=== PATIENT | female | born 1985 | race Caucasian/White ===

== ENCOUNTER 2019-07-05 07:15 | Day surgery (SDC) | payer MEDICARE ==
[~2019-07-05] VITALS: Ht 170.2 cm; Wt 82.6 kg
[~2019-07-05 07:15] MED LIST: ACET325T9 PO; ATOM80CA PO; HYDROmorphone 2 MG/ML VIAL IV PRN; IBUP-1027 PO; IV RINGERS,LACTATED 1000ML 1,000 ML IV SCH; MORPHINE SULFATE 2 MG/ML VIAL. IV PRN; OLAN10TA9 PO; ONDANSETRON PF 4 MG/2 ML VIAL. IV PRN; PROCHLORPERAZINE 10 MG/2 ML VIAL. IV PRN; [UNRECOGNIZED DRUG - CODE] PO; ceFAZolin SODIUM IV Push 1 GM VIAL. IVP ONE; ceFAZolin SODIUM IV Push 1 GM VIAL. IVP PRN; fentaNYL PF VIAL 100 MCG/2 ML VIAL IV PRN
[2019-07-05] MEDS ORDERED: FAMOTIDINE 20 MG/2 ML VIAL ONE (08:05)
[2019-07-05] MEDS ORDERED: ONDANSETRON PF 4 MG/2 ML VIAL. ONE (08:05)
[2019-07-05] MEDS ORDERED: PROPOFOL 20 ML IV ONE (08:05)
[2019-07-05] MEDS ORDERED: LIDOCAINE 2% PF 5 ML VIAL. ONE (08:05)
[2019-07-05] MEDS ORDERED: KETOROLAC 30 MG/ML VIAL. ONE (08:05)
[2019-07-05] MEDS ORDERED: KETAMINE HCL IN NACL, ISO-OSM 50 MG/5 ML SYRINGE ONE (08:06)
[2019-07-05] MEDS ORDERED: MIDAZOLAM HCL/PF 2 MG/2 ML VIAL. ONE (08:06)
[2019-07-05] MEDS ORDERED: DEXAMETHASONE SOD PHOS 4 MG/ML VIAL ONE ×2 (08:06)
[2019-07-05] MEDS ORDERED: SEVOFLURANE 16 TO 30 MINUTES. IH ONE (09:11)
--- NOTE | 2019-07-05 09:22 | PDOC ---
BRIEF OPERATIVE NOTE Date: Jul 05, 2019 Pre-Op Diagnosis Misplaced IUD Post-Op Diagnosis Same Procedure Performed [place] [facility] [place]. Delacruz Anesthesia Type: General Blood Loss none Specimens Obtained IUD Findings IUD partially protruding through sidewall of uterus, nml fallopian tube ostia Complications none Operative Note see dictation DAMARIS DELACRUZ Jr, MD Jul 05, 2019 09:21
--- NOTE | 2019-07-05 09:23 | DISCH ---
DISCHARGE INSTRUCTIONS Condition on Discharge Condition on Discharge: Stable Activity After Discharge Activity Instructions for Disc: Activity as tolerated Lifting Instructions after Dis: No heavy lifting Driving Instructions after Dis: Do not drive today Diet after Discharge Diet after Discharge: Regular Contacting the DRDavie after DC Call your doctor for: Concerns you may have Follow-Up Follow up with: Dr. Minaya in 1 wk DAMARIS MINAYA Jr, MD Jul 05, 2019 09:23
[2019-07-05] MEDS ORDERED: IBUP200T44 PO (09:31)
--- NOTE | 2019-07-05 09:33 | OP ---
DATE OF SURGERY: 07/05/2019 PREOPERATIVE DIAGNOSIS: Misplaced intrauterine device. POSTOPERATIVE DIAGNOSIS: Misplaced intrauterine device. PROCEDURE: Operative hysteroscopy. SURGEON: Greyson Delacruz MD ANESTHESIA: GETA. ESTIMATED BLOOD LOSS: None. FINDINGS: IUD partially protruding through the sidewall of the uterus. Normal fallopian tube ostia bilaterally. SUMMARY: A 34-year-old female who was presenting with misplaced IUD. Previous physician was unable to see strings and ultrasound was performed, which indicated that the IUD was inside the uterus. The patient was counseled on the risks, benefits and expectations of operative hysteroscopy for IUD removal and voiced clear understanding to proceed. DESCRIPTION OF PROCEDURE: The patient was taken to surgery suite, placed in dorsal lithotomy position. She was prepped with Betadine solution and draped in sterile fashion. After adequate anesthesia, weighted speculum and curved [place] placed vaginally. Anterior lip of the cervix grasped with single tooth tenaculum. The curved [place] was removed. Cervix was dilated with Hegar dilators up to size 8. The TruClear hysteroscope was then placed. The IUD was visualized at the fundus of the uterus, in which a portion of it was protruding into the sidewall of the uterus. This was grasped with graspers and removed. There was no through and through perforation of the uterus that was visualized. The fallopian tube ostia appeared normal bilaterally. The single tooth tenaculum and weighted speculum were removed. The patient tolerated the procedure well and was taken to recovery room in stable condition. Sponge and needle count correct x 3. GREYSON DELACRUZ MD DR: MASSIEL/[email or web address] JOB#: [id number] / [id number]
[2019-07-05] MEDS ORDERED: IBUPROFEN 400 MG TABLET. PO ONE (09:45)
[2019-07-05] MEDS ORDERED: IBUPROFEN 200 MG TABLET. PO ONE (10:00)
[2019-07-05 10:05] VITALS: BP 133/80
== END 2019-07-05 10:25 | disposition home or self-care (01) ==
LOC: SURG 07:15
PROVIDERS: ATTEND Obstetrics & Gynecology
DX: T83.32XA Displacement of intrauterine contraceptive device, initial encounter (principal); Y83.8 Other surgical procedures as the cause of abnormal reaction of the patient, or of later complication, without mention of misadventure at the time of the procedure; Y92.89 Other specified places as the place of occurrence of the external cause; Z91.040 Latex allergy status; Z88.8 Allergy status to other drugs, medicaments and biological substances; Z79.899 Other long term (current) drug therapy
CPT/HCPCS: 58562; 81025; A7015; J0690; J1100; J1885; J2250; J2405; J2704; J3010; J3490